=== PATIENT | female | born 1990 | race African-American/Black ===

== ENCOUNTER 2018-02-10 10:50 | Emergency (ER) | payer OTHER ==
[2018-02-10 10:57] VITALS: BP 139/60; PULSE 100; RESP 16; TEMP 98.2; O2SAT 99
[2018-02-10] MEDS ORDERED: LIDOCAINE HCL 1% 50 ML VIAL INFIL ONE (11:45)
[2018-02-10] MEDS ORDERED: CEPH-460 PO (12:07)
--- NOTE | 2018-02-10 12:07 | PD ---
HPI Chief Complaint: Laceration/Skin Injury Time Seen by Provider: 11:45 Travel History International Travel<30 days: No Contact w/Intl Traveler<30days: No Traveled to known affect area: No History of Present Illness HPI 27-year-old otherwise healthy female presents to the emergency room for evaluation of puncture wound to her right hand that occurred just prior to arrival. Patient works as a surgical coordinator. While arranging the scalpel on her tray, she slipped and accidentally stabbed herself with a sterile 15 blade. It is located on the palmar surface about 1 cm below the fourth MCP joint. She reports immediate, severe pain. States it bled a lot. She washed the wound with soap and water and then applied pressure. Pain radiates down her entire forearm. It is worse with extension of the fourth finger. She denies any paresthesias. States her last tetanus was 2 years ago. PFSH Social History Tobacco Use: No Allergies-Medications (Allergen,Severity, Reaction): Coded Allergies: benzonatate (Verified Allergy, Unknown, HIVES, 02/10/18) Reported Meds & Prescriptions Reported Meds & Active Scripts Active Keflex (Cephalexin) 500 Mg Cap 500 Mg PO Q12H 7 Days Review of Systems Except as stated in HPI: all other systems reviewed are Neg Physical Exam Narrative GENERAL: Well-developed, well-nourished female no acute distress. Afebrile. Ambulatory. SKIN: Warm and dry. There is a 4 mm very well approximated laceration 1 cm below the right fourth MCP joint on the volar surface. HEAD: Atraumatic. Normocephalic. EYES: Pupils equal and round. No scleral icterus. No injection or drainage. NECK: Trachea midline. No JVD. CARDIOVASCULAR: Regular rate and rhythm. RESPIRATORY: No accessory muscle use. Clear to auscultation. Breath sounds equal bilaterally. MUSCULOSKELETAL: Extremities without clubbing, cyanosis, or edema. No obvious deformities. Extreme pain with active and passive range of motion of the right 4th finger. Extensor and flexor tendon strength intact. Less than 2 second capillary refill distally. Data Data Last Documented VS Vital Signs Date Time Temp Pulse Resp B/P (MAP) Pulse Ox O2 Delivery O2 Flow Rate FiO2 02/10/18 10:57 98.2 100 16 139/60 (86) 99 Orders Orders Ed Discharge Order (02/10/18 12:08) Splint Or Brace Apply/Monitor (02/10/18 12:08) Cockup Hand Splint (02/10/18 ) MDM Medical Decision Making Medical Screen Exam Complete: Yes Emergency Medical Condition: Yes Medical Record Reviewed: Yes Differential Diagnosis Laceration, contusion, abrasion, tendon injury Narrative Course 27-year-old otherwise healthy female presents to the emergency room after accidentally stabbing herself with a sterile 15 blade in the OR. Tetanus up-to- date. She denies paresthesias. Physical exam reveals a 4 mm very well approximated, deep laceration once and medial below the right fourth MCP joint on the volar aspect. Nonbleeding. Extremely tender to palpation. Patient's extensor and flexor tendons appear to be intact. Patient can hold full strength against flexion of the hand. She does has significant pain initially with extension. I suspect she probably cut but did not completely sever the tendon which is why she has so much pain. The wound was thoroughly irrigated and dressed. She was given Keflex for pain. She will be placed in a wrist splint. Told to follow-up with the primary care physician or return for worsening symptoms. She understands and agrees to plan Diagnosis Primary Impression: Puncture wound of right hand Qualified Codes: S61.431A - Puncture wound without foreign body of right hand , initial encounter Referrals: Primary Care Physician Additional Instructions: Keep wound clean and dry. Apply triple antibiotic ointment daily Take ibuprofen with food as directed, as needed for pain. Use splint as needed for pain. Please follow up as soon as possible with [facility] for referral to an authorized Workers Compensation Doctor. Call Human Resources at [phone] or [phone]. Scripts Cephalexin (Keflex) 500 Mg Cap 500 MG PO Q12H for Infection for 7 Days, #14 CAP 0 Refills Prov: Joao Byrne MD 02/10/18 Disposition: 01 DISCHARGE HOME Condition: Stable Caitlyn Garcia Feb 10, 2018 12:07
[2018-02-18] MEDS ORDERED: CEPH-460 PO (09:15)
[2018-02-18] MEDS ORDERED: HYDR-3288 PO (09:15)
== END 2018-02-10 12:34 | disposition home or self-care (01) ==
LOC: NEPK 10:50
DX: S61.431A Puncture wound without foreign body of right hand, initial encounter (principal); W26.8XXA Contact with other sharp object(s), not elsewhere classified, initial encounter; Y92.234 Operating room of hospital as the place of occurrence of the external cause; Y99.0 Civilian activity done for income or pay
CPT/HCPCS: 99283; L3908

== ENCOUNTER → 2018-02-18 | Day surgery (SDC) | payer OTHER ==
[~2018-02-18] VITALS: Ht 170.2 cm; Wt 75.0 kg
[~2018-02-18] MED LIST: BUPIVACAINE HCL PF 0.5% 10 ML VIAL ONE; CEPH-460 PO; CHLORHEXIDINE GLUCONATE 2 % 1 PACK (2 CLOTHS) TOPICAL PRN; HYDR-3288 PO; LACTATED RINGER'S 1000 ML IV PRN; LIDOCAINE HCL 2% 50 ML VIAL ONE; METOPROLOL TARTRATE 25 MG TAB PO PRN; MIDAZOLAM HCL 2 MG/2 ML VIAL ONE; NEOMYCIN/POLYMYXIN 1 ML G.U. IRRIGANT ONE; POVIDONE IODINE 5% (ANTISEPSIS KIT) 4 APPLICATIONS EACH NARE PRN; SODIUM CHLORID 0.9% 500 ML IV PRN; ceFAZolin 1,000 MG/NS 100 ML IV SCH; fentaNYL CITRATE 250 MCG/5 ML AMP ONE
[2018-02-18 11:45] VITALS: PULSE 87
[2018-02-18 12:15] VITALS: PULSE 84; TEMP 98.4
--- NOTE | 2018-02-18 12:23 | MP ---
cc: Matt Hutson MD DATE OF OPERATION: 02/18/2018 DATE OF OPERATION: 02/18/2018 PREOPERATIVE DIAGNOSIS: Puncture wound, right palm and pain in the right hand. PROCEDURE PERFORMED: Right palm exploration and right fourth A1 andrews release. SURGEON: Louis. Dipesh PINEDA MD TOURNIQUET TIME: 13 minutes at 200 mmHg. DESCRIPTION OF PROCEDURE: The patient was brought to the operating room and placed on the operating table. After the correct site and side of surgery was verified by members of each team in the room multiple times including the patient and myself and, after adequate preoperative markings and preoperative written consent were verified by everyone, after adequate preoperative timeout was performed to everyone's satisfaction, after adequate IV sedation was achieved, the right upper extremity was prepped and draped in traditional sterile surgical fashion. A 50:50 mixture of 2% plain lidocaine and 0.5% plain Marcaine was infiltrated in the skin and subcutaneous tissue in the area of the A1 andrews over the fourth finger. The limb was exsanguinated with an Mandeep wrap and held in place. A highly placed well-padded actually tourniquet was inflated to 200 mmHg for a total of 13 minutes. The hand was placed palm up in a lead hand. A 2 cm incision within the distal palmar flexion crease was made and blunt dissection was performed. Exploration revealed the common digital artery and common digital and proper digital nerves to be intact even though they were right in the area of the skin puncture. Exploration did reveal a small laceration in the A1 andrews of the fourth flexor tendon sheath and chronic-appearing inflammation surrounding it. The A1 andrews was then completely released and the flexor tendons, both FDS and FDP, were meticulously explored and examined and found to only have really been scratched on the FDS tendon, otherwise both are completely intact. There was again some chronic-appearing inflammation as what appears to be a significant trigger finger, but there were no other anatomic abnormalities identified and no injuries other than the A1 andrews. Cultures were obtained as a precaution. A thorough irrigation with saline was performed. Passive range of motion was performed and was completely unrestricted. Thorough irrigation was performed again. The skin edges were reapproximated using interrupted and running 4-0 nylon suture. The hand and arm were thoroughly cleansed with Betadine and Adaptic dressings were applied on top of the wounds, followed by a bulky soft dressing. The axillary tourniquet was released prior to the closure of the skin and there was no active bleeding, no hematoma formation. Thorough irrigation was performed with 1 liter's worth of saline. Skin edges were reapproximated as stated. The hand and arm were thoroughly cleansed and dried. Betadine, Adaptic dressing applied on top of the wound, followed by a bulky soft dressing, a gentle circumferential dressing was applied and then an elastic circumferential dressing was applied in the usual fashion. The patient was awakened from anesthesia and transported to the Postanesthesia Care Unit awake and in stable condition. Sponge, needle and instrument counts were correct at the end of the case as reported by the nurses in the room. MD RAVI Calderon/OSVALDO , 12:03 PM , 12:22 PM
[2018-02-18 12:55] VITALS: BP 145/82; PULSE 82; RESP 14; O2SAT 100
== END | disposition home or self-care (01) ==
LOC: PHSDC 08:22
PROVIDERS: ATTEND Orthopaedic Surgery Hand Surgery
DX: S61.431A Puncture wound without foreign body of right hand, initial encounter (principal); M65.341 Trigger finger, right ring finger; W26.8XXA Contact with other sharp object(s), not elsewhere classified, initial encounter; Y92.234 Operating room of hospital as the place of occurrence of the external cause; Y99.0 Civilian activity done for income or pay
CPT/HCPCS: 01810; 20103; 26055; 87015; 87070; 87102; 87116; 87205; 87206; J0690; J2250; J3010; J7120

== ENCOUNTER 2018-04-26 13:48 | Emergency (ER) | payer OTHER ==
[~2018-04-26] VITALS: Ht 170.2 cm; Wt 75.0 kg
[~2018-04-26 13:48] MED LIST changes: -BUPIVACAINE HCL PF 0.5% 10 ML VIAL ONE; -CHLORHEXIDINE GLUCONATE 2 % 1 PACK (2 CLOTHS) TOPICAL PRN; -LACTATED RINGER'S 1000 ML IV PRN; -LIDOCAINE HCL 2% 50 ML VIAL ONE; -METOPROLOL TARTRATE 25 MG TAB PO PRN; -MIDAZOLAM HCL 2 MG/2 ML VIAL ONE; -NEOMYCIN/POLYMYXIN 1 ML G.U. IRRIGANT ONE; -POVIDONE IODINE 5% (ANTISEPSIS KIT) 4 APPLICATIONS EACH NARE PRN; -SODIUM CHLORID 0.9% 500 ML IV PRN; -ceFAZolin 1,000 MG/NS 100 ML IV SCH; -fentaNYL CITRATE 250 MCG/5 ML AMP ONE
[2018-04-26 14:01] VITALS: BP 154/72; PULSE 130; RESP 16; TEMP 98.3; O2SAT 100
[2018-04-26 14:44] VITALS: O2SAT 100
[2018-04-26 14:49] VITALS: BP 163/75; PULSE 114; RESP 19; O2SAT 100
[2018-04-26 14:57] LABS: AUTOMATED NEUTROPHIL # 3.3 TH/MM3 (1.8-7.7); BASOPHIL % 0.2 % (0.0-2.0); EOSINOPHIL # 0.1 TH/MM3 (0-0.4); EOSINOPHIL % 1.6 % (0.0-4.0); HEMATOCRIT 37.4 % (35.0-46.0); HEMOGLOBIN 12.6 GM/DL (11.6-15.3); LYMPH % 37.3 % (9.0-44.0); LYMPHOCYTE # 2.9 TH/MM3 (1.0-4.8); MEAN CELL VOLUME 78.3 FL (80.0-100.0); MEAN CORPUSCULAR HEMOGLOBIN 26.5 PG (27.0-34.0); MEAN CORPUSCULAR HGB CONC 33.8 % (32.0-36.0); MEAN PLATELET VOLUME 9.5 FL (7.0-11.0); MONO % 17.5 % (0.0-8.0); MONOCYTE # 1.3 TH/MM3 (0-0.9); NEUT % 43.4 % (16.0-70.0); PLATELET COUNT 245 TH/MM3 (150-450); RED BLOOD COUNT 4.78 MIL/MM3 (4.00-5.30); RED CELL DISTRIBUTION WIDTH 14.7 % (11.6-17.2); WHITE BLOOD COUNT 7.7 TH/MM3 (4.0-11.0)
[2018-04-26] MEDS ORDERED: SODIUM CHLOR 0.9% 1000 ML INJ 1,000 ML IV ONE (15:00)
[2018-04-26] MEDS ORDERED: PANTOPRAZOLE SOD 40 MG DELAYED RELEASE TAB PO ONE (15:00)
[2018-04-26] MEDS ORDERED: KETOROLAC TROMETHAMINE 30 MG/ML (IVP) VIAL IV PUSH ONE (15:00)
--- NOTE | 2018-04-26 15:01 | PD ---
HPI Chief Complaint: Cardiac Complaint Time Seen by Provider: 14:40 Travel History International Travel<30 days: No Contact w/Intl Traveler<30days: No Traveled to known affect area: No History of Present Illness HPI 27-year-old female complains of headache, palpitation chest pain. Patient states that the symptoms started 4 days ago. Patient states the headache aching headache bitemporal area. Patient denies any visual change. Patient denies any neck pain. Patient states that she has intermittent sharp pain palpitation substernal area. Patient denies any chest pain radiation. Patient denies any nausea vomiting diarrhea. Patient denies abdominal pain. Patient denies any dysuria frequency. Patient denies any fever chills. Patient denies any back pain. Patient denies any focal weakness or numbness of the extremity. Patient denies any recent head injury. PFSH Past Medical History Tetanus Vaccination: < 5 Years Influenza Vaccination: Yes ?: Unknown Past Surgical History AICD: No Section: Yes Joint Replacement: No Pacemaker: No Thoracic Surgery: Yes (BREAST REDUCTION 2001) Social History Alcohol Use: No Tobacco Use: No Substance Use: No Allergies-Medications (Allergen,Severity, Reaction): Coded Allergies: benzonatate (Verified Allergy, Unknown, HIVES, 04/26/18) Reported Meds & Prescriptions Reported Meds & Active Scripts Active No Active Prescriptions or Reported Medications Review of Systems General / Constitutional: No: Fever Eyes: No: Visual changes HENT: Positive: Headaches Cardiovascular: Positive: Chest Pain or Discomfort, Palpitations Respiratory: No: Shortness of Breath Gastrointestinal: No: Abdominal Pain Genitourinary: No: Dysuria Musculoskeletal: No: Pain Skin: No Rash Neurologic: No: Weakness Psychiatric: No: Depression Endocrine: No: Polydipsia Hematologic/Lymphatic: No: Easy Bruising Physical Exam Narrative GENERAL: Well-nourished, well-developed patient. SKIN: Focused skin assessment warm/dry. HEAD: Normocephalic. EYES: No scleral icterus. No injection or drainage. Pupils 2 mm equal reactive. NECK: Supple, trachea midline. No JVD or lymphadenopathy. No meningismus CARDIOVASCULAR: Regular rate and rhythm without murmurs, gallops, or rubs. RESPIRATORY: Breath sounds equal bilaterally. No accessory muscle use. GASTROINTESTINAL: Abdomen soft, nondistended. Patient has mild tenderness on palpation epigastric area. No rebound tenderness. No mass. MUSCULOSKELETAL: No cyanosis, or edema. BACK: Nontender without obvious deformity. No CVA tenderness. Neurologic exam normal. Data Data Last Documented VS Vital Signs Date Time Temp Pulse Resp B/P (MAP) Pulse Ox O2 Delivery O2 Flow Rate FiO2 04/26/18 14:49 114 19 163/75 (104) 100 Room Air 04/26/18 14:01 98.3 Orders Orders Electrocardiogram (04/26/18 14:05) Complete Blood Count With Diff (04/26/18 14:05) Basic Metabolic Panel (Bmp) (04/26/18 14:05) Ckmb (Isoenzyme) Profile (04/26/18 14:05) Troponin I (04/26/18 14:05) Chest, Single Ap (04/26/18 14:05) Iv Access Insert/Monitor (04/26/18 14:05) Ecg Monitoring (04/26/18 14:05) Oxygen Administration (04/26/18 14:05) Oximetry (04/26/18 14:05) Hepatic Functional Panel (04/26/18 14:51) Lipase (04/26/18 14:51) Ct Brain W/O Iv Contrast(Rout) (04/26/18 14:51) Ed Urine Pregnancytest Poc (04/26/18 14:51) Ketorolac Inj (Toradol Inj) (04/26/18 15:00) Sodium Chlor 0.9% 1000 Ml Inj (Ns 1000 M (04/26/18 15:00) Pantoprazole (Protonix) (04/26/18 15:00) Labs Laboratory Tests Test 04/26/18 14:35 White Blood Count 7.7 TH/MM3 Red Blood Count 4.78 MIL/MM3 Hemoglobin 12.6 GM/DL Hematocrit 37.4 % Mean Corpuscular Volume 78.3 FL Mean Corpuscular Hemoglobin 26.5 PG Mean Corpuscular Hemoglobin Concent 33.8 % Red Cell Distribution Width 14.7 % Platelet Count 245 TH/MM3 Mean Platelet Volume 9.5 FL Neutrophils (%) (Auto) 43.4 % Lymphocytes (%) (Auto) 37.3 % Monocytes (%) (Auto) 17.5 % Eosinophils (%) (Auto) 1.6 % Basophils (%) (Auto) 0.2 % Neutrophils # (Auto) 3.3 TH/MM3 Lymphocytes # (Auto) 2.9 TH/MM3 Monocytes # (Auto) 1.3 TH/MM3 Eosinophils # (Auto) 0.1 TH/MM3 Basophils # (Auto) 0.0 TH/MM3 CBC Comment DIFF FINAL Differential Comment Blood Urea Nitrogen 12 MG/DL Creatinine 0.57 MG/DL Random Glucose 119 MG/DL Calcium Level 9.0 MG/DL Sodium Level 142 MEQ/L Potassium Level 3.9 MEQ/L Chloride Level 107 MEQ/L Carbon Dioxide Level 25.0 MEQ/L Anion Gap 10 MEQ/L Estimat Glomerular Filtration Rate 154 ML/MIN Total Bilirubin 0.9 MG/DL Direct Bilirubin 0.2 MG/DL Indirect Bilirubin 0.7 MG/DL Aspartate Amino Transf (AST/SGOT) 18 U/L Alanine Aminotransferase (ALT/SGPT) 39 U/L Alkaline Phosphatase 113 U/L Total Creatine Kinase 68 U/L Troponin I LESS THAN 0.02 NG/ML Total Protein 7.8 GM/DL Albumin 3.3 GM/DL Lipase 198 U/L MDM Medical Decision Making Medical Screen Exam Complete: Yes Emergency Medical Condition: Yes Interpretation(s) Last Impressions Head CT 04/26/18 1451 Signed Impressions: CONCLUSION: 1. No acute intracranial abnormality identified. Chest X-Ray 04/26/18 1405 Signed Impressions: CONCLUSION: Negative for acute process. 1621 PM. CBC WBC 7.7. Hemoglobin 12.6. Hematocrit 37.4. MCV 78.3. Normal differential. CMP within normal limits. Cardiac enzymes are normal. Differential Diagnosis Differential diagnoses including migraine headache, tension headache, cluster headache, costochondritis, angina, ID, PE, pneumothorax, gastritis. Narrative Course 27-year-old female with headache, chest pain, palpitation. Normal saline solution 1 L IV bolus. Toradol 30 mg IV. Diagnosis Primary Impression: Cephalgia Qualified Codes: R51 - Headache Additional Impression: Atypical chest pain Patient Instructions: General Instructions Med/Other Pt SpecificInfo: Prescription(s) given Scripts Pantoprazole (Protonix) 40 Mg Tab 40 MG PO DAILY for Reflux, #30 TAB 0 Refills Prov: Richie Gates MD 04/26/18 Pvybjhombp-Fenweowfdydlt-Jfqmmsnp (Fioricet) 50-300-40 Mg Cap 1-2 CAP PO Q6H Y for HEADACHE, #30 CAP 0 Refills Prov: Richie Gates MD 04/26/18 Disposition: 01 DISCHARGE HOME Condition: Stable Richie Gates MD Apr 26, 2018 15:01
--- NOTE | 2018-04-26 15:11 | RADRPT ---
EXAM DATE: 04/26/2018 3:07 PM EDT AGE/SEX: 27 years / Female INDICATIONS: Chest pain. CLINICAL DATA: This is the patient's initial encounter. Patient reports that signs and symptoms have been present for 4 - 6 days and indicates a pain score of 5/10. MEDICAL/SURGICAL HISTORY: None. None. COMPARISON: No prior exams available for comparison. FINDINGS: A single AP view of the chest demonstrates the lungs to be symmetrically aerated without evidence of mass, infiltrate or effusion. The cardiomediastinal contours are unremarkable. Osseous structures a re intact. CONCLUSION: Negative for acute process. Electronically signed by: Chip Prakash MD 04/26/2018 3:10 PM EDT
[2018-04-26 15:12] LABS: BLOOD UREA NITROGEN 12 MG/DL (7-18); CHLORIDE 107 MEQ/L (98-107); CREATININE 0.57 MG/DL (0.50-1.00); GLOMERULAR FILTRATION RATE 154 ML/MIN (>89); GLUCOSE,RANDOM 119 MG/DL (74-106); SODIUM (NA) 142 MEQ/L (136-145)
[2018-04-26 15:16] LABS: TROPONIN I LESS THAN 0.02 NG/ML (0.02-0.05)
[2018-04-26 16:07] LABS: ALBUMIN 3.3 GM/DL (3.4-5.0); DIRECT BILIRUBIN ADULT 0.2 MG/DL (0.0-0.2)
[2018-04-26 16:09] LABS: INDIRECT BILIRUBIN 0.7 MG/DL (0.0-0.8); TOTAL BILIRUBIN ADULT 0.9 MG/DL (0.2-1.0); TOTAL PROTEIN 7.8 GM/DL (6.4-8.2)
--- NOTE | 2018-04-26 16:13 | RADRPT ---
EXAM DATE: 04/26/2018 4:00 PM EDT AGE/SEX: 27 years / Female INDICATIONS: Cephalgia. CLINICAL DATA: This is the patient's initial encounter. Patient reports that signs and symptoms have been present for 4 - 6 days and indicates a pain score of 4/10. MEDICAL/SURGICAL HISTORY: None. . RADIATION DOSE: 38.73 CTDI (mGy) COMPARISON: No prior exams available for comparison. TECHNIQUE: CT of the head without contrast. Using automated exposure control and adjustment of the mA and/or kV according to patient size, radiation dose was kept as low as reasonably achievable to ob tain optimal diagnostic quality images. FINDINGS: Cerebrum: The ventricles are normal for age. No evidence of midline shift, mass lesion, hemorrhage or acute infarction. No extraaxial fluid collections are seen. Posterior Fossa: The cerebellum and brainstem are intact. The 4th ventricle is midline. The cerebe llopontine angle is unremarkable. Extracranial: The visualized portion of the orbits is intact. Skull: The calvaria is intact. No evidence of skull fracture. CONCLUSION: 1. No acute intracranial abnormality identified. Electronically signed by: Papa Prakash MD 04/26/2018 4:12 PM EDT
[2018-04-26] MEDS ORDERED: PROT40TA PO (16:27)
[2018-04-26] MEDS ORDERED: BUTA1CAP PO (16:27)
--- NOTE | 2018-04-26 19:34 | EKG ---
Date Performed: 04/26/2018 Time Performed: 14:18:05 PTAGE: 27 years EKG: SINUS TACHYCARDIA POSSIBLE LEFT ATRIAL ENLARGEMENT ABNORMAL RHYTHM ECG NO PREVIOUS TRACING DOCTOR: Cahrles Pretty Interpretating Date/Time 04/26/2018 19:33:30
== END 2018-04-26 16:48 | disposition home or self-care (01) ==
LOC: NEPE 13:48
DX: R51 Headache (principal); R07.89 Other chest pain; R00.2 Palpitations
CPT/HCPCS: 70450; 71045; 80048; 80076; 82550; 83690; 84484; 84703; 85025; 93005; 96361; 96374; 99285; J1885; J7030

== ENCOUNTER 2018-04-29 07:07 | Emergency (ER) | payer OTHER ==
[~2018-04-29 07:07] MED LIST changes: -CEPH-460 PO; -CYCL10TA PO; -HYDR-3288 PO; -IBUP1TAB7 PO
[2018-04-29 07:24] VITALS: BP 141/66; PULSE 94; RESP 16; TEMP 98; O2SAT 99
[2018-04-29] MEDS ORDERED: LORazepam 2 MG/ML VIAL IM ONE (07:45)
[2018-04-29] MEDS ORDERED: KETOROLAC TROMETHAMINE 60 MG/2 ML (IM) VIAL IM ONE (07:45)
--- NOTE | 2018-04-29 08:16 | PD ---
HPI . Back pain Chief Complaint: Chest Pain Time Seen by Provider: 07:31 Travel History International Travel<30 days: No Contact w/Intl Traveler<30days: No Traveled to known affect area: No History of Present Illness HPI This patient presents with the chief complaint of left upper back pain. Onset was about an hour and a half ago. The pain radiates through to her mid chest. Pain is exacerbated by movement and deep respirations. Pain is described as dull and constant and is rated 6/10. She does not have any associated cough, shortness of breath, fever. PFSH Past Medical History ?: Not LMP: 04/12/18 Past Surgical History AICD: No Section: Yes Joint Replacement: No Pacemaker: No Thoracic Surgery: Yes (BREAST REDUCTION 2001) Social History Alcohol Use: No Tobacco Use: No Substance Use: No Allergies-Medications (Allergen,Severity, Reaction): Coded Allergies: benzonatate (Verified Allergy, Unknown, HIVES, 04/26/18) Reported Meds & Prescriptions Reported Meds & Active Scripts Active Protonix (Pantoprazole Sodium) 40 Mg Tab 40 Mg PO DAILY Fioricet (Wbkjqttveg-Tixrvmzlztvrk-Iguaeimp) 50-300-40 Mg Cap 1-2 Cap PO Q6H PRN Review of Systems Except as stated in HPI: all other systems reviewed are Neg Physical Exam Narrative GENERAL: Healthy-appearing 27-year-old woman in no acute distress. SKIN: warm/dry. HEAD: Normocephalic. Atraumatic. EYES: Pupils equal and round. Extraocular movements are intact. ENT: Mucous membranes pink and moist. NECK: Supple. Full range of motion without pain.. CARDIOVASCULAR: Regular rate and rhythm. Heart sounds are normal. RESPIRATORY: No accessory muscle use. Clear to auscultation. Breath sounds equal bilaterally. MUSCULOSKELETAL: No obvious deformities. Normal muscle tone. Tenderness to palpation between the left scapula and the thoracic spine. NEUROLOGICAL: Awake and alert. No obvious cranial nerve deficits. Motor grossly within normal limits. Normal speech. PSYCHIATRIC: Appropriate mood and affect; insight and judgment normal. Data Data Last Documented VS Vital Signs Date Time Temp Pulse Resp B/P (MAP) Pulse Ox O2 Delivery O2 Flow Rate FiO2 04/29/18 08:21 76 96 Room Air 04/29/18 07:24 98.0 16 141/66 (91) Orders Orders Electrocardiogram (04/29/18 ) Troponin I (04/29/18 07:40) D-Dimer (04/29/18 07:40) Ketorolac Inj (Toradol Inj) (04/29/18 07:45) Lorazepam Inj (Ativan Inj) (04/29/18 07:45) Labs Laboratory Tests Test 04/29/18 08:05 D-Dimer Quantitative (PE/DVT) 0.37 MG/L FEU Troponin I LESS THAN 0.02 NG/ML MDM Medical Decision Making Medical Screen Exam Complete: Yes Emergency Medical Condition: Yes Medical Record Reviewed: Yes (This patient was just seen here on 04/26 with various complaints including headache, chest pain and palpitations. She had a thorough workup at that time including an EKG, chest x-ray, CBC, CMP and troponin. All within normal limits. She was subsequently discharged home.) Interpretation(s) EKG shows a normal sinus rhythm with no acute ischemic changes Differential Diagnosis Differential diagnosis includes but is not limited to musculoskeletal upper back pain, pneumonia, pneumothorax, pulmonary embolism Narrative Course This patient presents for the evaluation of left upper back pain radiating through to her chest. She has tenderness to palpation of her left upper back. This patient had a complete workup 3 days ago for chest pain. The workup was negative. I will repeat her EKG and troponin. I will add a d-dimer. In the meantime, her pain and spasm are being treated with Toradol and Ativan. D-dimer 0.37 Troponin less than 0.02 Today, this patient has musculoskeletal upper back pain. She will be discharged with prescription for ibuprofen and Flexeril Diagnosis Primary Impression: Upper back pain on left side Patient Instructions: General Instructions, Thoracic Back Strain (ED) Med/Other Pt SpecificInfo: Prescription(s) given Scripts Cyclobenzaprine (Flexeril) 10 Mg Tab 10 MG PO TID for Muscle Spasm, #30 TAB 0 Refills Prov: Oksana Adkins MD 04/29/18 Ibuprofen (Ibuprofen) 800 Mg Tab 800 MG PO Q8H Y for Pain/Inflammation, #60 TAB 0 Refills Prov: Oksana Adkins MD 04/29/18 Disposition: 01 DISCHARGE HOME Condition: Stable Oksana Adkins MD Apr 29, 2018 08:16
[2018-04-29] MEDS ORDERED: CYCL10TA PO (08:49)
[2018-04-29] MEDS ORDERED: IBUP1TAB7 PO (08:49)
[2018-04-29 09:19] VITALS: BP 118/63
--- NOTE | 2018-04-29 19:09 | EKG ---
Date Performed: 04/29/2018 Time Performed: 06:41:48 PTAGE: 27 years EKG: Sinus rhythm NORMAL ECG when compared to prior EKG,patient is no longer tachycardic PREVIOUS TRACING : 04/26/2018 14.18 DOCTOR: Abbie Garg Interpretating Date/Time 04/29/2018 19:08:07
== END 2018-04-29 09:28 | disposition home or self-care (01) ==
LOC: NEPE 07:07
DX: M54.6 Pain in thoracic spine (principal); R07.9 Chest pain, unspecified; Z88.8 Allergy status to other drugs, medicaments and biological substances; Z79.899 Other long term (current) drug therapy
CPT/HCPCS: 84484; 85379; 93005; 96372; 99284; J1885; J2060

== ENCOUNTER → 2018-04-29 | Outpatient (CLI) | payer OTHER ==
[~2018-04-29] MED LIST changes: +BUTA1CAP PO; +CYCL10TA PO; +IBUP1TAB7 PO; +PROT40TA PO
[2018-04-29 11:58] LABS: AUTOMATED NEUTROPHIL # 3.9 TH/MM3 (1.8-7.7); BASOPHIL % 0.1 % (0.0-2.0); EOSINOPHIL # 0.1 TH/MM3 (0-0.4); HEMATOCRIT 38.2 % (35.0-46.0); HEMOGLOBIN 12.9 GM/DL (11.6-15.3); LYMPH % 37.6 % (9.0-44.0); LYMPHOCYTE # 2.9 TH/MM3 (1.0-4.8); MEAN CELL VOLUME 78.5 FL (80.0-100.0); MEAN CORPUSCULAR HEMOGLOBIN 26.6 PG (27.0-34.0); MEAN CORPUSCULAR HGB CONC 33.9 % (32.0-36.0); MEAN PLATELET VOLUME 9.4 FL (7.0-11.0); MONO % 10.9 % (0.0-8.0); MONOCYTE # 0.8 TH/MM3 (0-0.9); NEUT % 50.4 % (16.0-70.0); PLATELET COUNT 247 TH/MM3 (150-450); RED BLOOD COUNT 4.86 MIL/MM3 (4.00-5.30); RED CELL DISTRIBUTION WIDTH 14.5 % (11.6-17.2); WHITE BLOOD COUNT 7.8 TH/MM3 (4.0-11.0)
[2018-04-29 12:08] LABS: ALBUMIN 3.5 GM/DL (3.4-5.0); ALT (GPT) 33 U/L (10-53); AST (GOT) 14 U/L (15-37); BICARBONATE 21.5 MEQ/L (21.0-32.0); BLOOD UREA NITROGEN 13 MG/DL (7-18); CALCIUM 9.6 MG/DL (8.5-10.1); CHLORIDE 103 MEQ/L (98-107); CHOLESTEROL 112 MG/DL (120-200); CREATININE 0.51 MG/DL (0.50-1.00); GLOMERULAR FILTRATION RATE 175 ML/MIN (>89); GLUCOSE,FASTING 91 MG/DL (74-99); SODIUM (NA) 137 MEQ/L (136-145); TRIGLYCERIDES 49 MG/DL (42-150)
[2018-04-29 12:17] LABS: ALKALINE PHOSPHATASE 108 U/L (45-117); CHOLESTEROL/ HDL RATIO 1.85 RATIO; FREE T3 24.63 PG/ML (2.18-3.98); FREE T4 4.93 NG/DL (0.76-1.46); HDL CHOLESTEROL 60.3 MG/DL (40.0-60.0); LDL CHOLESTEROL 42 MG/DL (0-99); TOTAL BILIRUBIN ADULT 1.1 MG/DL (0.2-1.0); TOTAL PROTEIN 8.2 GM/DL (6.4-8.2)
[2018-04-30 23:54] LABS: THYROID PEROX AB (MICROSOMAL) 430 IU/mL (<9)
[2018-05-01 03:52] LABS: THYROGLOB ABS LESS THAN 1 IU/mL (< OR = 1)
== END ==
LOC: ELAB 11:11
PROVIDERS: ATTEND Nurse Practitioner Family
DX: R00.0 Tachycardia, unspecified (principal); R94.6 Abnormal results of thyroid function studies; Z13.220 Encounter for screening for lipoid disorders
CPT/HCPCS: 36415; 80053; 80061; 84439; 84443; 84481; 85025; 86376; 86800